=== PATIENT | male | born 1995 | race Caucasian/White ===

== ENCOUNTER 2021-02-04 14:57 | Emergency (ER) | payer BC, SELFPAY ==
[2021-02-04 15:05] VITALS: BP 113/72; PULSE 118; RESP 18; TEMP 36.3; O2SAT 100
--- NOTE | 2021-02-04 15:51 | ED.GENADULT ---
HPI - General Adult General Chief complaint: Skin/Abscess/Foreign Body Stated complaint: Rash x months Time Seen by Provider: 02/04/21 15:01 Source: patient and RN notes reviewed Mode of arrival: ambulatory Limitations: no limitations History of Present Illness HPI narrative: Patient presents with rash to the suprapubic region that has been present for 4 months notes itching and irritation has tried topical antibiotic with no relief denies similar occurrence in the past notes that he gets frequent itching denies other rash or similar occurrence last Related Data Allergies Allergy/AdvReac Type Severity Reaction Status Date / Time No Known Allergies Allergy Verified 02/04/21 15:31 Review of Systems Review of Systems: All systems reviewed & are unremarkable except as noted in HPI and below PMFSH Social History Social History (Updated 02/04/21 @ 15:54 by Cody Yen PA-C) Smoking status: Never smoker Gender identity (if verbalized by the patient): Male Exam Narrative: Exam Narrative: GENERAL: Well-appearing, well-nourished, and in no acute distress. HEAD: Normocephalic, atraumatic. EYES: PERRLA and EOMI. ENT: Nares clear, no rhinorrhea or epistaxis. Mucous membranes moist. CHEST: Clear to auscultation. No respiratory distress. No wheezes rales or rhonchi HEART: Regular rate and rhythm. No murmur heard. EXTREMITIES: Normal range of motion. No edema. SKIN: Warm, dry, patient with circular rash in the suprapubic region that is some redness and excoriation centrally consistent with fungal infection NEURO: No focal deficits. Alert and oriented x3. PSYCH: Normal mood and affect. Course Course Emergency Course: Patient in the room at this time aware of case findings treatment plan diagnosis will follow with primary care for further evaluation and referral to dermatology Vital Signs Vital signs: Vital Signs Temperature 97.4 F L 02/04/21 15:05 Pulse Rate 118 H 02/04/21 15:05 Respiratory Rate 18 02/04/21 15:05 Blood Pressure 113/72 02/04/21 15:05 Pulse Oximetry 100 02/04/21 15:05 Temperature 97.4 F L 02/04/21 15:05 Pulse Rate 118 H 02/04/21 15:05 Respiratory Rate 18 02/04/21 15:05 Blood Pressure 113/72 02/04/21 15:05 Pulse Oximetry 100 02/04/21 15:05 Medical Decision Making MDM Narrative Medical decision making narrative: Patient presented with rash that appears to be fungal in nature will be treated accordingly he will follow with primary care felt appropriate for outpatient reevaluation Vital Signs Vital Signs: Vital Signs Temperature 97.4 F L 02/04/21 15:05 Pulse Rate 118 H 02/04/21 15:05 Respiratory Rate 18 02/04/21 15:05 Blood Pressure 113/72 02/04/21 15:05 Pulse Oximetry 100 02/04/21 15:05 Temperature 97.4 F L 02/04/21 15:05 Pulse Rate 118 H 02/04/21 15:05 Respiratory Rate 18 02/04/21 15:05 Blood Pressure 113/72 02/04/21 15:05 Pulse Oximetry 100 02/04/21 15:05 Discharge Plan Discharge Clinical Impression: Rash and nonspecific skin eruption Patient Disposition: Home, Self-Care Condition: Stable Instructions: Antibiotic Form, Tinea Corporis (ED), Tinea Capitis (ED) Additional Instructions: Follow up with primary care in the next 2-3 days for re-evaluation and discussion for referral to dermatology return if symptoms worsen or concerns, any increase in redness swelling pain or fever over 100.5 Clean wound with mild soapy water. Keep clean and dry Follow patient education sheets Prescriptions: New clotrimazole-betamethasone 1-0.05 % cream 1 applic topical BID 14 Days RF: 0 fluconazole [Diflucan] 200 mg tablet 200 mg PO DAILY Qty: 2 RF: 0 Follow-up/Referrals: Nathaniel,Quiana Bee MD [Primary Care Provider] -
== END 2021-02-04 16:05 | disposition home or self-care (01) ==
PROVIDERS: Emergency Provider Emergency Medicine; PCP Family Medicine
DX: R21 Rash and other nonspecific skin eruption (principal)
CPT/HCPCS: 99283

== ENCOUNTER 2021-02-13 19:03 | Emergency (ER) | payer BC, SELFPAY ==
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
[2021-02-13 19:37] VITALS: BP 178/123; PULSE 112; RESP 12; TEMP 37.3; O2SAT 98
--- NOTE | 2021-02-13 20:10 | PC.NURSE ---
called and spoke to Abhijeet to add on Ethanol, CMP, TSH, CBCD
[2021-02-13 20:14] LABS: Basophils Absolute Auto 0.1 K/mm3 (0.0-0.1); Basophils Percent Auto 0.4 % (0.2-1.2); Eosinophils Absolute Auto 0.1 K/mm3 (0-0.3); Eosinophils Percent Auto 0.5 % (0-4.4); Hemoglobin 17.9 g/dL (14.0-18.0); Immature Granulocyte Absolute 0.05 K/mm3 (0.00-0.031); Immature Granulocyte Percent A 0.4 % (0-0.5); Lymphocytes Absolute Auto 2.68 K/mm3 (0.9-3.2); Lymphocytes Percent Auto 20.8 % (18.3-44.2); Mean Corpuscular HGB Conc 34.4 g/dl (32-36); Mean Corpuscular Hemoglobin 29.4 pg (26-34); Mean Corpuscular Volume 85.5 fl (80-100); Mean Platelet Volume 9.7 fl (7.4-10.4); Monocytes Absolute Auto 0.9 K/mm3 (0.1-0.6); Monocytes Percent Auto 7.1 % (2.6-8.5); Neutrophils Absolute Auto 9.1 K/mm3 (1.3-6.7); Neutrophils Percent Auto 70.8 % (45.5-73.1); Platelet Count Result 245 k/mm3 (150-375); Red Blood Count 6.08 M/mm3 (4.6-6.20); Red Cell Distribution Width 12.7 % (11.5-14.5); White Blood Count 12.9 K/mm3 (4.5-10.0)
[2021-02-13 20:20] LABS: Ethanol < 10 mg/dL (<10)
[2021-02-13 20:21] LABS: Alanine Aminotransferase 27 U/L (4-50); Albumin Level 4.9 g/dL (3.5-5.1); Alkaline Phosphatase 73 U/L (38-126); Anion Gap 8 mmol/L (8-16); Aspartate Amino Transferase 41 U/L (17-59); Bilirubin,Total 1.5 mg/dL (0.2-1.3); Blood Urea Nitrogen 11 mg/dL (9-20); Calcium 9.9 mg/dL (8.4-10.2); Carbon Dioxide 31 mmol/L (22-30); Chloride 100 mmol/L (98-107); Estimated Glomerular Filt Rate > 60; Glucose 114 mg/dL (75-110); Potassium 3.8 mmol/L (3.4-5.0); Sodium 139 mmol/L (137-145)
[2021-02-13 20:52] LABS: Thyroid Stimulating Hormone 0.826 uIU/mL (0.465-4.680)
[2021-02-13 20:57] LABS: Add Urine Microscopic? YES; Appearance Urine Clear (Clear); Bilirubin Urine Negative (Negative); Blood Urine Negative (Negative); Color Urine Yellow (Yellow); Glucose Urine UA Negative (Negative); Ketones Urine Negative (Negative); Leukocyte Esterase Ur Negative LEU/UL (Negative); Mucus Urine Rare /lpf; Nitrate Urine Negative (Negative); Protein Urine Negative (Negative); RBC Urine 0-2 /hpf (0-2); Specific Grav Ur 1.013 (1.001-1.035)
[2021-02-13] MEDS: LORazepam (*CRX) 1 MG TABLET PO (21:07)
[2021-02-13 21:09] LABS: Amphetamine Screen Urine Negative (Negative); Barbiturate Screen Urine Negative (Negative); Benzodiazepines Screen Urine Negative (Negative); Cannabinoid Screen Urine Positive (Negative); Cocaine Screen Urine Negative (Negative); Methadone Screen Urine Negative (Negative); Opiate Screen Urine Negative (Negative); Phencyclidine Screen Urine Negative (Negative)
--- NOTE | 2021-02-13 22:11 | PC.NURSE ---
pt siria plata anxious in room, pacing order received for Ativan po from dr Malik.
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
[2021-02-13 23:21] VITALS: BP 150/100; PULSE 100; RESP 16; TEMP 37.1; O2SAT 100
== END 2021-02-13 23:42 | disposition home or self-care (01) ==
PROVIDERS: Emergency Provider Emergency Medicine; PCP Family Medicine
DX: F41.9 Anxiety disorder, unspecified (principal)
CPT/HCPCS: 36415; 73130; 80053; 80307; 81001; 84443; 85025; 99284; A9270

== ENCOUNTER 2021-04-02 09:33 | Emergency (ER) | payer BC, SELFPAY ==
[2021-04-02 09:57] VITALS: BP 143/96; PULSE 120; RESP 20; TEMP 37.2; O2SAT 98
[2021-04-02 10:10] LABS: Basophils Percent Auto 0.4 % (0.2-1.2); Eosinophils Absolute Auto 0.2 K/mm3 (0-0.3); Eosinophils Percent Auto 1.5 % (0-4.4); Hematocrit 56.4 % (42.0-52.0); Hemoglobin 19.5 g/dL (14.0-18.0); Immature Granulocyte Absolute 0.07 K/mm3 (0.00-0.031); Immature Granulocyte Percent A 0.7 % (0-0.5); Lymphocytes Percent Auto 26.8 % (18.3-44.2); Mean Corpuscular HGB Conc 34.6 g/dl (32-36); Mean Corpuscular Hemoglobin 30.3 pg (26-34); Mean Corpuscular Volume 87.6 fl (80-100); Mean Platelet Volume 9.8 fl (7.4-10.4); Monocytes Absolute Auto 0.9 K/mm3 (0.1-0.6); Monocytes Percent Auto 8.7 % (2.6-8.5); Neutrophils Absolute Auto 6.5 K/mm3 (1.3-6.7); Neutrophils Percent Auto 61.9 % (45.5-73.1); Platelet Count Result 259 k/mm3 (150-375); Red Blood Count 6.44 M/mm3 (4.6-6.20); Red Cell Distribution Width 13.2 % (11.5-14.5); White Blood Count 10.5 K/mm3 (4.5-10.0)
[2021-04-02 10:13] LABS: Add Urine Microscopic? YES; Appearance Urine Clear (Clear); Bilirubin Urine Negative (Negative); Blood Urine Negative (Negative); Color Urine Yellow (Yellow); Glucose Urine UA Negative (Negative); Ketones Urine Negative (Negative); Leukocyte Esterase Ur Negative LEU/UL (Negative); Mucus Urine Rare /lpf; Nitrate Urine Negative (Negative); Protein Urine Negative (Negative); WBC Urine 0-3 /hpf
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
[2021-04-02 10:22] LABS: Alanine Aminotransferase 32 U/L (4-50); Albumin Level 5.1 g/dL (3.5-5.1); Alkaline Phosphatase 65 U/L (38-126); Anion Gap 9 mmol/L (8-16); Aspartate Amino Transferase 28 U/L (17-59); Bilirubin,Total 0.8 mg/dL (0.2-1.3); Blood Urea Nitrogen 16 mg/dL (9-20); Calcium 9.9 mg/dL (8.4-10.2); Carbon Dioxide 27 mmol/L (22-30); Chloride 105 mmol/L (98-107); Estimated CRCL calculation 87 ml/min; Estimated Glomerular Filt Rate > 60; Glucose 101 mg/dL (65-110); Potassium 3.8 mmol/L (3.4-5.0); Sodium 141 mmol/L (137-145)
[2021-04-02 10:24] LABS: Ethanol < 10 mg/dL (<10)
[2021-04-02 10:25] LABS: Amphetamine Screen Urine Negative (Negative); Barbiturate Screen Urine Negative (Negative); Benzodiazepines Screen Urine Negative (Negative); Cannabinoid Screen Urine Positive (Negative); Cocaine Screen Urine Negative (Negative); Methadone Screen Urine Negative (Negative); Opiate Screen Urine Negative (Negative); Phencyclidine Screen Urine Negative (Negative)
--- NOTE | 2021-04-02 10:30 | PC.NURSE ---
Pt is pacing back in forth in room.
[2021-04-02 10:32] LABS: EDCOVIDSCREEN Negative (Negative)
--- NOTE | 2021-04-02 10:51 | ED.PSYCH ---
HPI - Psych General Chief Complaint: Psychiatric Symptoms <Chanelle Gandara MD - Last Filed: 04/02/21 19:24> Stated Complaint: SI/HI <Chanelle Gandara MD - Last Filed: 04/02/21 19:24> Time Seen by Provider: 04/02/21 09:55 <Chanelle Gandara MD - Last Filed: 04/02/21 19:24> Source: patient and RN notes reviewed <Chanelle Gandara MD - Last Filed: 04/02/21 19:24> Mode of arrival: EMS <Chanelle Gandara MD - Last Filed: 04/02/21 19:24> Limitations: no limitations <Chanelle Gandara MD - Last Filed: 04/02/21 19:24> History of Present Illness HPI Narrative: This is a 25 year old male who presents for evaluation of suicidal and homicidal thoughts. PAtient states he was recently released from [facility] and he is getting monthly injections of Haldol. He states he has been unable to get his injection for his haldol this month because either he was late or it was the weekend. He states he is having thought of kidnapping people. He is telling the sitter his plan to kidnap her and bag her head against the door. He denies any other complaints. <Chanelle Gandara MD - Last Filed: 04/02/21 19:24> Related Data Allergies/Adverse Reactions: Allergies Allergy/AdvReac Type Severity Reaction Status Date / Time No Known Allergies Allergy Verified 02/13/21 20:18 <Chanelle Gandara MD - Last Filed: 04/02/21 19:24> Review of Systems Review of Systems: All systems reviewed & are unremarkable except as noted in HPI and below <Chanelle Gandara MD - Last Filed: 04/02/21 19:24> PMFSH Past Medical History Medical History: Medical History (Updated 04/02/21 @ 19:23 by Chanelle Gandara MD) Anxiety <Chanelle Gandara MD - Last Filed: 04/02/21 19:24> Social History Social History: Social History Smoking status: Never smoker Substance use type: crack/cocaine Gender identity (if verbalized by the patient): Male <Chanelle Gandara MD - Last Filed: 04/02/21 19:24> Exam Const: General: no acute distress and alert <Chanelle Gandara MD - Last Filed: 04/02/21 19:24> Orientation/consciousness: patient oriented x3 <Chanelle Gandara MD - Last Filed: 04/02/21 19:24> Eyes: EOM: EOMs intact bilaterally <Chanelle Gandara MD - Last Filed: 04/02/21 19:24> Chest: Chest palpation & inspection: normal inspection of the chest <Chanelle Gandara MD - Last Filed: 04/02/21 19:24> Resp: Effort & Inspection: normal respiratory effort and no retractions <Chanelle Gandara MD - Last Filed: 04/02/21 19:24> Auscultation: clear to auscultation bilaterally <Chanelle Gandara MD - Last Filed: 04/02/21 19:24> Cardio: Rate: regular rate <Chanelle Gandara MD - Last Filed: 04/02/21 19:24> Rhythm: regular rhythm <Chanelle Gandara MD - Last Filed: 04/02/21 19:24> Heart sounds: no murmurs <Chanelle Gandara MD - Last Filed: 04/02/21 19:24> GI: GI Palp: Yes Soft to palpation, No Tenderness to palpation present (GI) and No Guarding due to palpation present (GI) <Chanelle Gandara MD - Last Filed: 04/02/21 19:24> Auscultation: normal bowel sounds <Chanelle Gandara MD - Last Filed: 04/02/21 19:24> Skin: General skin exam: normal color <Chanelle Gandara MD - Last Filed: 04/02/21 19:24> Rashes: no rashes <Chanelle Gandara MD - Last Filed: 04/02/21 19:24> Neuro: General: patient oriented x3, moves all extremities and CN's II-XI intact bilaterally <Chanelle Gandara MD - Last Filed: 04/02/21 19:24> Other: patient is pacing around the room <Chanelle Gandara MD - Last Filed: 04/02/21 19:24> Psych: Appearance: grossly normal and well kempt <Chanelle Gandara MD - Last Filed: 04/02/21 19:24> Attitude: cooperative <Chanelle Gandara MD - Last Filed: 04/02/21 19:24> Thought content: Yes Homicidality present <Chanelle Gandara MD - Last Filed: 04/02/21 19:24> Course Course Emergency Course: Care turned to myself
--- NOTE | 2021-04-02 10:53 | PC.NURSE ---
Pt. was pacing and talking to sitter. He stated how easy it would be to take me hostage and how he would do it. He also stated he would slam the door in anyone's face if they asked him any more questions. He claims that he wanted to kick the Dr. for not giving him his medications. He physically acted out how he would take anyone hostage and hold a pen to their neck, hide behind them so that the maintenance mechanic helper could not get to him. He states he is paranoid and nervous of anyone that walks by. States that he does not want to cause a scene, but is continuously narrating how he would accomplish these thoughts. Nurse made aware and instructed me to make note.
[2021-04-02] MEDS: HALOPERIDOL LACTATE 5 MG/ML VIAL IM (11:15)
[2021-04-02] MEDS: LORazepam (*CRX) 1 MG TABLET PO (11:16)
--- NOTE | 2021-04-02 12:03 | ECG_ITS ---
Measurements Intervals [place] Rate: 88 P: 60 CT: 147 QRS: 48 QRSD: 90 T: 14 QT: 327 QTc: 396 Interpretive Statements SINUS RHYTHM NORMAL ECG Electronically Signed On 04-03-2021 8:10:13 CDT by Jony Latif D.O.
--- NOTE | 2021-04-02 12:39 | PC.NURSE ---
Patient was noted to be sleeping on the stretcher with the sitter at bedside. Patient woke easily to verbal stimuli. He was calm and appropriate with staff. When asked how he was feeling, patient reported I'm fine . Food tray ordered for patient at this time as well.
[2021-04-02 19:16] VITALS: BP 125/84; PULSE 68; RESP 16; O2SAT 100
[2021-04-02] MEDS: NICOTINE (*PBKC) 21 MG PATCH 1 PATCH TRANSDERM (21:58)
[2021-04-02 23:13] VITALS: BP 132/81; PULSE 78; RESP 18; TEMP 36.7; O2SAT 100
--- NOTE | 2021-04-02 23:17 | PC.NURSE ---
Report to WHITNEY Gauthier at [place]. [phone].
--- NOTE | 2021-04-02 23:29 | PC.NURSE ---
called [facility] to request transport. ETA midnight;
--- NOTE | 2021-04-02 23:49 | PC.NURSE ---
[facility] here
== END 2021-04-02 23:55 ==
PROVIDERS: General Practice; Emergency Provider Emergency Medicine; PCP Family Medicine
DX: R45.850 Homicidal ideations (principal); F41.9 Anxiety disorder, unspecified; Z20.822 Contact with and (suspected) exposure to COVID-19
CPT/HCPCS: 36415; 80053; 80307; 81001; 84443; 85025; 87426; 93005; 96372; 99285; A9270; C9803; J1630

== ENCOUNTER 2022-02-21 23:12 | Observation (INO) | payer BC, SELFPAY ==
--- NOTE | ~2022-02-21 | XR_ITS ---
EXAMINATION: XR chest 1V portable DATE: 02/21/2022 23:54 INDICATION: Overdose TECHNIQUE: frontal view of the chest was obtained. COMPARISON: None FINDINGS: The lungs are clear with no focal airspace opacities, pulmonary edema, pleural effusion or pneumothor ax. The cardiomediastinal silhouette is normal. Visualized bones and soft tissues are unremarkable. IMPRESSION: 1. No acute cardiopulmonary disease. Reviewed, dictated and finalized at location A.
[2022-02-21 23:10] VITALS: BP 205/99; PULSE 162; RESP 37; TEMP 36.8; O2SAT 96
[2022-02-21 23:16] VITALS: PULSE 163; RESP 46
--- NOTE | 2022-02-21 23:33 | ECG_ITS ---
Measurements Intervals [employer] Rate: 160 P: [place]: 0 QRS: 52 QRSD: 84 T: 47 QT: 300 QTc: 489 Interpretive Statements SUPRAVENTRICULAR TACHYCARDIA NONSPECIFIC ST & T-WAVE ABNORMALITY- INF/LAT LEADS ABNORMAL ECG Electronically Signed On 02-22-2022 6:33:01 CDT by Jony Latif D.O.
[2022-02-21 23:46] VITALS: BP 178/122; PULSE 153; RESP 38
--- NOTE | 2022-02-21 23:46 | PC.NURSE ---
RN called poison control, spoke with Maricel OLSON. suggested Sodium Bicarb with wide QRS, will fax over guidelines.
[2022-02-21] MEDS: SODIUM CHLORIDE 0.9% IV 1,000 ML 999 ML IV CONT (23:53)
[2022-02-21] MEDS: LORazepam INJ (*CRX) 2 MG/ML VIAL 1 MG IV PUSH (23:53)
[2022-02-22] VITALS (26 sets, daily range): BP systolic 144–193; BP diastolic 85–101; PULSE 84–144; RESP 13–45; TEMP 36.8–37.1; O2SAT 94–99; BMI 31.4
[2022-02-22 00:28] LABS: Basophils Absolute Auto 0.1 K/mm3 (0.0-0.1); Basophils Percent Auto 0.5 % (0.2-1.2); Eosinophils Absolute Auto 0.1 K/mm3 (0-0.3); Eosinophils Percent Auto 0.7 % (0-4.4); Hematocrit 52.3 % (42.0-52.0); Hemoglobin 18.6 g/dL (14.0-18.0); Immature Granulocyte Absolute 0.38 K/mm3 (0.00-0.031); Immature Granulocyte Percent A 2.1 % (0-0.5); Lymphocytes Absolute Auto 4.72 K/mm3 (0.9-3.2); Lymphocytes Percent Auto 25.9 % (18.3-44.2); Mean Corpuscular HGB Conc 35.6 g/dl (32-36); Mean Corpuscular Hemoglobin 30.3 pg (26-34); Mean Corpuscular Volume 85.3 fl (80-100); Mean Platelet Volume 10.3 fl (7.4-10.4); Monocytes Absolute Auto 1.5 K/mm3 (0.1-0.6); Neutrophils Absolute Auto 11.4 K/mm3 (1.3-6.7); Neutrophils Percent Auto 62.8 % (45.5-73.1); Platelet Count Result 308 k/mm3 (150-375); Red Blood Count 6.13 M/mm3 (4.6-6.20); Red Cell Distribution Width 12.8 % (11.5-14.5); White Blood Count 18.2 K/mm3 (4.5-10.0)
[2022-02-22 00:34] LABS: Appearance Urine Clear (Clear); Bilirubin Urine Negative (Negative); Color Urine Yellow (Yellow); Glucose Urine UA Negative (Negative); Ketones Urine Trace mg/dL (Negative); Leukocyte Esterase Ur Negative LEU/UL (Negative); Nitrate Urine Negative (Negative); Protein Urine 1+ mg/dL (Negative); Specific Grav Ur >= 1.030 (1.001-1.035); Urobilinogen Urine 0.2 mg/dL (<2.0); pH Urine 5.5 (5.0-9.0)
[2022-02-22 00:35] LABS: Add Urine Microscopic? YES; Bacteria Urine Trace /hpf; Blood Urine Trace (Negative); Calcium Oxalate Crystals Urine Present /hpf; Mucus Urine Rare /lpf; WBC Urine 0-3 /hpf
--- NOTE | 2022-02-22 00:37 | PC.NURSE ---
Pt resting on stretcher quietly. Sitter reports prior to catherization that pt was attempting to eat and lick the pulse oximeter and that this behavior has stopped and pt is much calmer.
[2022-02-22 00:40] LABS: Acetaminophen < 10 ug/mL (10-30); Ethanol 51 mg/dL (<10); Salicylate < 1.0 mg/dL (2-20)
[2022-02-22 00:47] LABS: Amphetamine Screen Urine Negative (Negative); Barbiturate Screen Urine Negative (Negative); Benzodiazepines Screen Urine Negative (Negative); Cannabinoid Screen Urine Positive (Negative); Cocaine Screen Urine Negative (Negative); Methadone Screen Urine Negative (Negative); Opiate Screen Urine Negative (Negative); Phencyclidine Screen Urine Negative (Negative)
[2022-02-22 00:52] LABS: Alanine Aminotransferase 86 U/L (6-50); Albumin Level 4.5 g/dL (3.5-5.1); Alkaline Phosphatase 66 U/L (38-126); Anion Gap 15 mmol/L (8-16); Aspartate Amino Transferase 128 U/L (17-59); Bilirubin,Total 0.4 mg/dL (0.2-1.3); Blood Urea Nitrogen 11 mg/dL (9-20); Calcium 8.6 mg/dL (8.4-10.2); Carbon Dioxide 20 mmol/L (22-30); Chloride 108 mmol/L (98-107); Estimated CRCL calculation 89 ml/min; Estimated Glomerular Filt Rate > 60; Glucose 117 mg/dL (65-110); Potassium 2.8 mmol/L (3.4-5.0); Sodium 143 mmol/L (137-145)
[2022-02-22 01:04] LABS: SARS-CoV-2 RNA PCR Negative
[2022-02-22 01:05] LABS: Creatine Kinase 6917 U/L (55-170)
[2022-02-22] MEDS: SODIUM CHLORIDE 0.9% IV 1,000 ML 999 ML IV CONT (01:15)
[2022-02-22] MEDS: LORazepam INJ (*CRX) 2 MG/ML VIAL 1 MG IV PUSH (01:15)
[2022-02-22] MEDS: POTASSIUM CHLORIDE INJ 40 MEQ in SODIUM CHLORIDE 0.9% IV 500 ML 130 MEQ IVPB (01:16)
--- NOTE | 2022-02-22 01:21 | PC.NURSE ---
Pt awake, eyes remain wide open and pt appears to be hallucinating. Does not answer when he's asked about hallucinating. Pt noted to be talking when alone in room. Speech nonsensical and slurred. Pt asks for a beer. Explained that unable to give any po at this time.
--- NOTE | 2022-02-22 02:18 | ED.GENADULT ---
HPI - General Adult General Chief complaint: Altered Mental Status Stated complaint: AMS, +ETOH Time Seen by Provider: 02/21/22 23:24 History of Present Illness HPI narrative: Patient a 26-year-old gentleman who presents to the emergency department with chief complaint of suicidal ideation and overdose. Patient reports this evening he took 2 handfuls full of Benadryl in attempt to harm himself the patient also drink some alcohol and told one of his family members that he was wanting to harm himself and that he overdosed. The patient was brought in by EMS tachycardic Related Data Home Medications Medication Instructions Recorded Confirmed aripiprazole 5 mg tablet mg 02/22/22 haloperidol 5 mg tablet mg 02/22/22 hydroxyzine HCl 25 mg tablet mg 02/22/22 Allergies Allergy/AdvReac Type Severity Reaction Status Date / Time No Known Allergies Allergy Verified 02/21/22 23:47 Review of Systems Review of Systems: A 10 system review of systems was completed on the patient and is negative except for what is stated in the HPI. Nursing and ancillary documentation was reviewed. PMFSH Past Medical History Medical History Anxiety Bipolar disorder Surgical History Surgical History No history of previous surgery Family History Family History Father Healthy adult Mother Healthy adult Social History Social History Social History: He reports that he smoked pack per day since he was 12 years old. Smoking packs per day: 1 Smoking cigarettes per day: 20.0 Years smoked: 15 Smoking pack-years: 15.00 Smoking status: Current every day smoker Tobacco type: cigarettes Alcohol intake: current Drinks per week: 10 Substance use: current Substance use type: marijuana Additional living arrangements comments: He lives with his parents. Additional occupation/education comments: He works at [employer]. Gender identity (if verbalized by the patient): Male Spiritual care concerns: No Exam Narrative: GENERAL: Well-appearing, well-nourished, and in no acute distress. HEAD: Normocephalic, atraumatic. EYES: PERRLA and EOMI. pupils are dilated ENT: Nares clear, no rhinorrhea or epistaxis. Dry membranes moist. NECK: Supple. CHEST: Clear to auscultation. No respiratory distress. HEART: Tachycardic rate and rhythm. No murmur heard. Normal peripheral pulses. ABDOMEN: Soft, nontender, nondistended, normal active bowel sounds. EXTREMITIES: Normal range of motion. No edema. SKIN: Warm, dry, no rash. NEURO: No focal deficits. Alert and oriented x3. PSYCH: Depressed, suicidal Course Vital Signs Vital signs: Vital Signs Temperature 36.8 C 02/21/22 23:10 Pulse Rate 162 H 02/21/22 23:10 Respiratory Rate 37 H 02/21/22 23:10 Blood Pressure 205/99 H 02/21/22 23:10 Pulse Oximetry 96 02/21/22 23:10 Oxygen Delivery Room Air 02/21/22 23:10 Temperature 37.1 C 02/22/22 05:12 Pulse Rate 135 H 02/22/22 05:12 Respiratory Rate 36 H 02/22/22 05:12 Blood Pressure 190/94 H 02/22/22 05:12 Pulse Oximetry 99 02/22/22 05:12 Oxygen Delivery Room Air 02/21/22 23:10 Medical Decision Making Vital Signs Vital Signs: Vital Signs Temperature 36.8 C 02/21/22 23:10 Pulse Rate 162 H 02/21/22 23:10 Respiratory Rate 37 H 02/21/22 23:10 Blood Pressure 205/99 H 02/21/22 23:10 Pulse Oximetry 96 02/21/22 23:10 Oxygen Delivery Room Air 02/21/22 23:10 Temperature 37.1 C 02/22/22 05:12 Pulse Rate 135 H 02/22/22 05:12 Respiratory Rate 36 H 02/22/22 05:12 Blood Pressure 190/94 H 02/22/22 05:12 Pulse Oximetry 99 02/22/22 05:12 Oxygen Delivery Room Air 02/21/22 23:10 Lab Data Result diagrams: 02/22
[2022-02-22] MEDS: SODIUM CHLORIDE 0.9% IV 1,000 ML 200 ML IV CONT (02:24)
--- NOTE | 2022-02-22 02:30 | PC.NURSE ---
Awaiting return call from Dr. King.
--- NOTE | 2022-02-22 02:40 | PC.NURSE ---
Pt stands to void with assist of two. Voids approx 100cc clear yellow urine and assisted back to bed. Pt knows name and that he's at a hospital. States yes when asked if he's hallucinating, denies auditory hallucinations.
--- NOTE | 2022-02-22 02:45 | PC.NURSE ---
Dr. Gan speaking with Dr. King and has spoken with relief salesperson regarding admission. [place] Poison Control calls and update on pt given. Made aware of plan to admit to ICU.
--- NOTE | 2022-02-22 03:10 | PC.NURSE ---
2nd peripheral IV initiated for bicarb gtt. Attempt to call pharmacy regarding gtt, no answer. Report to WHITNEY Martinez to continue care.
[2022-02-22] MEDS: SODIUM BICARBONATE 8.4% 150 MEQ in DEXTROSE 5% 1,000 ML 950 ML 100 MEQ IV CONT ×2 (03:31→13:47)
--- NOTE | 2022-02-22 05:17 | ADMGEN ---
This patient, Seamus Naik, was admitted to Intensive Care Unit-5. Patient/family oriented to hospital policies and general routines including ID bracelet, bed and alarms, visiting hours, pain management, procedures, bathroom and other care routines, personal items, smoking policy, room service/diet, and visiting hours. Information on how to activate the Rapid Response Team has been discussed. Patient/Family are encouraged to report perceived risks to care and to ask questions if they do not understand what they are told or what they should do.
--- NOTE | 2022-02-22 05:41 | PM.IMHP ---
H&P: HPI History of Present Illness Date/Time: 02/22/22 05:41 Chief Complaint: Overdose Narrative: 26-year-old male with a past medical history of bipolar disorder, anxiety and hallucinations who presented to the ER via EMS after suicidal attempt. The patient's brother provided history to the ER staff. Brother reported that he woke up in found his brother with bug eyes and not acting right. Patient was witnessed to take at least 2 handfuls of Benadryl. Brother thought that the patient had taken is Benadryl sometime after 9:00 p.m.. The patient tells me that he took the Benadryl around 3:00 p.m. but is not a reliable historian. At the time of my evaluation the patient was oriented to person place and time but thought that the president was Obama. The patient states that he was not trying to hurt himself that he was simply trying to get high. The patient is difficult to get history from in has tangential thought process. He told me that he does have hallucinations but he could not tell me what the hallucinations were telling him. He denies any homicidal ideation at this time. He has been evaluated in the past in March 2021 for similar symptoms and presentation. In the ER the patient's speech was at times slurred. At the time my evaluation the patient's speech is clear but thought process is not clear. The patient's brother reported that the patient had a seizure 1 week ago but does not know any details about the seizure and is unclear if the patient received any medical care at that time. Patient denies any symptoms of urinary retention and has urinated since he has arrived to the ICU. He denies any abdominal pain constipation or diarrhea. He is noted to be tachycardic denies any chest pain. He denies shortness of breath but is tachypneic. He does have a erythematous raised patch of skin to his right lower abdomen. He reports that this area will frequently itch. This is been present somewhere from a few months to a few years. He has a smaller patch of erythematous skin to the lateral left thigh that it appears he is actually scratched to create an ulcer. There is no drainage or warmth. He has been afebrile since presentation. The patient tells me that he only drinks alcohol on occasion but cannot give me an amount. His alcohol level when he arrived to the ER was 51. He does admit to smoking marijuana frequently. Review of Systems Review of Systems: Twelve point review of systems was attempted but limited due to the patient's anticholinergic crisis/drug intoxication. [facility] Past Medical History Medical History (Updated 02/22/22 @ 06:25 by Loyda King DO) Anxiety Auditory hallucinations Bipolar disorder Surgical History Surgical History (Updated 02/22/22 @ 06:04 by Loyda King DO) No history of previous surgery Family History Family History (Updated 02/22/22 @ 06:15 by Loyda King DO) Father Healthy adult Mother Healthy adult Social History Social History (Updated 02/22/22 @ 06:17 by Loyda King DO) Social History: He reports that he smoked pack per day since he was 12 years old. Smoking packs per day: 1 Smoking cigarettes per day: 20.0 Years smoked: 15 Smoking pack-years: 15.00 Smoking status: Current every day smoker Tobacco type: cigarettes Alcohol intake: current Drinks per week: 10 Substance use: current Substance use type: marijuana Additional living arrangements comments: He lives with his parents. Additional occupation/education comments: He works at [employer]. Gender identity (if verbalized by the patient): Male Spiritual care concerns: No Meds Home Medications and Allergies Home Medications Medication Instructions Recorded Confirmed Type aripiprazole 5 mg tablet mg 02/22/22 History haloperidol 5 mg tablet mg 02/22/22 History hydroxyzine HCl 25 mg tablet mg 02/22/22 History Allergies Allergy/AdvReac Type Severity Re
[2022-02-22] MEDS: diazePAM INJ (*CRX) 10 MG/2 ML SYRINGE 2 MG IV PUSH ×2 (05:55→19:36)
[2022-02-22] MEDS: SODIUM CHLORIDE 0.9% IV 1,000 ML 150 ML IV CONT ×4 (05:56→22:01)
--- NOTE | 2022-02-22 06:03 | ECG_ITS ---
Measurements Intervals [place] Rate: 117 P: 54 AR: 180 QRS: 35 QRSD: 86 T: 19 QT: 342 QTc: 478 Interpretive Statements SINUS TACHYCARDIA NONSPECIFIC T-WAVE ABNORMALITY- INFERIOR LEADS ABNORMAL ECG Electronically Signed On 02-22-2022 22:21:48 CDT by Jony Latif D.O.
[2022-02-22 06:29] LABS: Hematocrit 49.6 % (42.0-52.0); Hemoglobin 17.5 g/dL (14.0-18.0); Mean Corpuscular HGB Conc 35.3 g/dl (32-36); Mean Corpuscular Hemoglobin 29.6 pg (26-34); Mean Corpuscular Volume 83.9 fl (80-100); Mean Platelet Volume 9.5 fl (7.4-10.4); Platelet Count Result 261 k/mm3 (150-375); Red Blood Count 5.91 M/mm3 (4.6-6.20); Red Cell Distribution Width 12.7 % (11.5-14.5); White Blood Count 19.9 K/mm3 (4.5-10.0)
[2022-02-22 06:58] LABS: Alanine Aminotransferase 83 U/L (6-50); Albumin Level 4.1 g/dL (3.5-5.1); Alkaline Phosphatase 57 U/L (38-126); Anion Gap 10 mmol/L (8-16); Aspartate Amino Transferase 107 U/L (17-59); Bilirubin,Total 0.5 mg/dL (0.2-1.3); Blood Urea Nitrogen 8 mg/dL (9-20); Calcium 8.8 mg/dL (8.4-10.2); Carbon Dioxide 22 mmol/L (22-30); Chloride 109 mmol/L (98-107); Estimated CRCL calculation 108 ml/min; Estimated Glomerular Filt Rate > 60; Glucose 128 mg/dL (65-110); Magnesium 1.5 mg/dL (1.6-2.3); Phosphorus 3.3 mg/dL (2.5-4.5); Sodium 141 mmol/L (137-145)
[2022-02-22 07:18] LABS: Creatine Kinase 5576 U/L (55-170)
[2022-02-22] MEDS: LACTATED RINGERS 1,000 ML 999 ML IV CONT (07:33)
[2022-02-22] MEDS: hydrALAZINE HCL 20 MG/ML VIAL 10 MG IV PUSH ×2 (07:34→13:03)
--- NOTE | 2022-02-22 08:13 | WPDCNINT ---
Assessment and Plan Assessment and plan (1) Anticholinergic drug overdose: Qualifiers: Encounter type: initial encounter Injury intent: intentional self-harm Qualified Code(s): T44.3X2A - Poisoning by other parasympatholytics [anticholinergics and antimuscarinics] and spasmolytics, intentional self-harm, initial encounter Code(s): T44.3X1A - Poisoning by other parasympatholytics [anticholinergics and antimuscarinics] and spasmolytics, accidental (unintentional), initial encounter Status: Acute Assessment and Plan: Patient presented with suicidal behavior after taking 2 handfuls of Benadryl pills. -patient currently tachycardic, confused with dilated pupils, difficulty in urination, he is urinating every 10-15 minutes. -refused Berger catheter -patient is confused -poison Control has been notified, was started on bicarb infusion for slightly increased QT interval -patient has received 2 L of IV fluids, will give additional IV fluid bolus this morning as he remains tachycardic -patient is hypertensive, will add p.r.n. hydralazine, patient also has diazepam p.r.n. for his anxiety (2) Suicidal behavior: Code(s): R45.89 - Other symptoms and signs involving emotional state Status: Acute Assessment and Plan: Patient in the ER did state that he was suicidal, also his brother informed the hospitalist that he had suicidal thoughts and behaviors -continue suicidal precautions -bedside sitter -will have care coordination and crisis management evaluate the patient once he is medically stable (3) Acute hypokalemia: Code(s): E87.6 - Hypokalemia Status: Acute Assessment and Plan: Hypokalemia has resolved after replacement (4) Rhabdomyolysis: Code(s): M62.82 - Rhabdomyolysis Status: Acute Assessment and Plan: Rhabdomyolysis, could be related to tremors secondary to Benadryl overdose -patient will be given additional IV fluid bolus this morning -continue sodium bicarb infusion and IV fluids Plan IV fluid bolus Will start oral diet Additional Plan Code status: Full code Critical care time spent: 43 minutes This dictation may have been done utilizing a voice recognition system. Attempts have been made to correct errors. However, there may be uncorrected grammatical, spelling, and recognition errors present. Due to a high probability of clinically significant, life threatening deterioration, the patient required my highest level of preparedness to intervene emergently and I personally spent this critical care time directly and personally managing the patient. This critical care time included obtaining a history; examining the patient; pulse oximetry; ordering and review of studies; arranging urgent treatment with development of a management plan; evaluation of patient's response to treatment; frequent reassessment; and discussions with other providers. It was exclusive of separately billable procedures and treating other patients and teaching time. Please see Assessment and Plan section and the rest of the note for further information on patient assessment and treatment [facility] Consult Note Consult date: 02/22/22 Reason for consult: Diphenhydramine overdose, suicidal behavior HPI: Seamus Naik is a 26 year old male with past medical history of anxiety, bipolar disorder, auditory hallucinations presented to the ER on 02/22/2022 with with missed overdose of 2 handfuls of Benadryl pills, according the records patient also had suicidal thoughts/behavior. Patient was also hallucinating and had tendon shows thought process. Patient was alert and oriented in the ER but started to get more confused when he was transferred to the ICU. Patient received 2 L of IV fluids, CK levels were in the 6000. Patient had mild increase in his QT poison controlled recommended starting bicarb infusion. Patient was transferred to the ICU for further management. Patient seen and examine
--- NOTE | 2022-02-22 09:38 | PC.NURSE ---
Poison control updated on patient condition.
[2022-02-22] MEDS: TRIAMCINOLONE ACET 0.5% OINT 15 GM TUBE 1 APPLIC TOPICAL ×3 (10:09→16:32)
[2022-02-22] MEDS: ENOXAPARIN 40 MG/0.4 ML SYRINGE SUB-Q (10:09)
--- NOTE | 2022-02-22 12:03 | ECG_ITS ---
Measurements Intervals [place] Rate: 104 P: 58 OR: 159 QRS: 36 QRSD: 86 T: 14 QT: 345 QTc: 454 Interpretive Statements SINUS TACHYCARDIA BORDERLINE ST-T WAVE ABNORMALITY- ANTEROLAT/INF LEADS BORDERLINE ECG Electronically Signed On 02-22-2022 22:27:36 CDT by Jony Latif D.O.
--- NOTE | 2022-02-22 12:58 | PM.IMPN ---
Progress Note: A&P Assessment and Plan (1) Anticholinergic drug overdose: Qualifiers: Encounter type: initial encounter Injury intent: intentional self-harm Qualified Code(s): T44.3X2A - Poisoning by other parasympatholytics [anticholinergics and antimuscarinics] and spasmolytics, intentional self-harm, initial encounter Code(s): T44.3X1A - Poisoning by other parasympatholytics [anticholinergics and antimuscarinics] and spasmolytics, accidental (unintentional), initial encounter Status: Acute Assessment and Plan: Patient presented with suicidal behavior after taking 2 handfuls of Benadryl pills and is admitted to the ICU for monitoring. Tachycardic. No longer suicidal. UDS positive for cannabinoids. Appreciate recommendations from ICU. (2) Suicidal behavior: Code(s): R45.89 - Other symptoms and signs involving emotional state Status: Acute Assessment and Plan: Patient no longer suicidal and may benefit from Psychiatry consultation. (3) Acute hypokalemia: Code(s): E87.6 - Hypokalemia Status: Acute Assessment and Plan: Resolved. (4) Rhabdomyolysis: Code(s): M62.82 - Rhabdomyolysis Status: Acute Assessment and Plan: Rhabdomyolysis, could be related to tremors secondary to Benadryl overdose -patient will be given additional IV fluid bolus this morning -continue sodium bicarb infusion and IV fluids (5) Suicide attempt by drug overdose: Code(s): T50.902A - Poisoning by unspecified drugs, medicaments and biological substances, intentional self-harm, initial encounter Status: Acute Assessment and Plan: -See plan as noted above. (6) Hypertension: Qualifiers: Hypertension type: unspecified secondary hypertension Qualified Code(s): I15.9 - Secondary hypertension, unspecified Code(s): I10 - Essential (primary) hypertension Status: Acute Assessment and Plan: Hypertensive. May be relate current poisoning. Would monitor for now. (7) Auditory hallucinations: Code(s): R44.0 - Auditory hallucinations Status: Acute Assessment and Plan: Patient denied hallucinations during my exam. Subjective Date/time seen: 02/22/22 13:58 Patient reports his primary care physician manages his psychotropic medications and that he does not see a psychiatrist. Denies SI or HI at this time. Denies drug use other than marijuana. Denies having had any recent traumatic event such as the of a friend or close family member, loss of job. Says he just felt depressed and bored with life so he tried to take his life. Says the PCP was treating him for anxiety and depression. Denies visual or auditory hallucinations. Review of Systems Psychiatric: Psychiatric: Reports anxiety, Reports depression, Denies homicidal ideation and Denies suicidal ideation Exam Narrative: GENERAL: NAD, cooperative HEENT: Normocephalic, atraumatic, anicteric, large dilated pupils NECK: Supple CV: Tachycardia, regular rhythm. No murmurs. RESP: CTAB, Normal work of breathing. Abdomen: Soft, non-tender, non-distended, +BS EXTREMITIES: Warm and well perfused, no clubbing, cyanosis, or edema. +2 Distal pulses bilaterally. SKIN: warm, dry and intact. NEURO:CN 2-12 grossly intact. Objective Data Vital Signs Vital Signs: Vital Signs - 24 hr 02/22/22 00:02 02/22/22 00:15 02/22/22 00:16 Temperature Pulse Rate 142 H 134 H 140 H Respiratory Rate 37 H 42 H 32 H Blood Pressure 163/95 H 163/97 H Pulse Oximetry 94 Oxygen Delivery 02/22/22 00:31 02/22/22 00:32 02/22/22 01:07 Temperature Pulse Rate 137 H 139 H 138 H Respiratory Rate 42 H 45 H 28 H Blood Pressure 161/85 H Pulse Oximetry 95 95 Oxygen Delivery 02/22/22 01:52 02/22/22 02:15 02/22/22 02:16 Temperature Pulse Rate 133 H 127 H 135 H Respiratory Rate 21 H 27 H 24 H Blo
[2022-02-22] MEDS: NICOTINE (*PBKC) 21 MG PATCH 1 PATCH TRANSDERM (13:02)
--- NOTE | 2022-02-22 16:48 | ECG_ITS ---
Measurements Intervals [place] Rate: 97 P: 59 MT: 160 QRS: 44 QRSD: 89 T: 14 QT: 349 QTc: 443 Interpretive Statements SINUS RHYTHM BORDERLINE ST-T WAVE ABNORMALITY- INFERIOR LEADS BORDERLINE ECG Electronically Signed On 02-23-2022 16:11:36 CDT by Jony Latif D.O.
--- NOTE | 2022-02-22 18:03 | ECG_ITS ---
Measurements Intervals [place] Rate: 84 P: 63 [place]: 163 QRS: 49 QRSD: 94 T: 11 QT: 379 QTc: 450 Interpretive Statements SINUS RHYTHM BASELINE ARTIFACT- I, II, III, AVR, AVF, V1 NORMAL ECG Electronically Signed On 02-23-2022 9:45:55 CDT by Jony Latif D.O.
--- NOTE | 2022-02-22 21:29 | PC.NURSE ---
Call received from poison control. Updated on patient vitals, ekg, and mental status.
[2022-02-23] VITALS (10 sets, daily range): BP systolic 133–156; BP diastolic 83–97; PULSE 68–93; RESP 18–26; TEMP 36.6–37.2; O2SAT 97–100
--- NOTE | 2022-02-23 | ECG_ITS ---
Measurements Intervals [place] Rate: 80 P: 55 LA: 162 QRS: 46 QRSD: 88 T: 19 QT: 371 QTc: 428 Interpretive Statements SINUS RHYTHM BASELINE ARTIFACT- II, III, AVR, AVF, V1 NORMAL ECG Electronically Signed On 02-23-2022 9:46:41 CDT by Jony aLtif D.O.
[2022-02-23] MEDS: SODIUM BICARBONATE 8.4% 150 MEQ in DEXTROSE 5% 1,000 ML 950 ML 100 MEQ IV CONT (00:47)
[2022-02-23 04:42] LABS: Hematocrit 45.1 % (42.0-52.0); Mean Corpuscular HGB Conc 33.3 g/dl (32-36); Mean Corpuscular Volume 87.2 fl (80-100); Mean Platelet Volume 9.5 fl (7.4-10.4); Platelet Count Result 172 k/mm3 (150-375); Red Blood Count 5.17 M/mm3 (4.6-6.20); Red Cell Distribution Width 13.2 % (11.5-14.5); White Blood Count 8.2 K/mm3 (4.5-10.0)
[2022-02-23] MEDS: SODIUM CHLORIDE 0.9% IV 1,000 ML 150 ML IV CONT (04:45)
[2022-02-23 05:01] LABS: Alanine Aminotransferase 73 U/L (6-50); Albumin Level 2.9 g/dL (3.5-5.1); Alkaline Phosphatase 56 U/L (38-126); Anion Gap 1 mmol/L (8-16); Aspartate Amino Transferase 73 U/L (17-59); Blood Urea Nitrogen 7 mg/dL (9-20); Calcium 7.9 mg/dL (8.4-10.2); Carbon Dioxide 31 mmol/L (22-30); Chloride 105 mmol/L (98-107); Creatine Kinase 1447 U/L (55-170); Estimated CRCL calculation 99 ml/min; Estimated Glomerular Filt Rate > 60; Glucose 94 mg/dL (65-110); Magnesium 1.8 mg/dL (1.6-2.3); Phosphorus 3.4 mg/dL (2.5-4.5); Potassium 3.3 mmol/L (3.4-5.0); Sodium 137 mmol/L (137-145)
--- NOTE | 2022-02-23 06:00 | ECG_ITS ---
Measurements Intervals [place] Rate: 95 P: 53 MS: 154 QRS: 43 QRSD: 97 T: 14 QT: 356 QTc: 448 Interpretive Statements SINUS RHYTHM NORMAL ECG Electronically Signed On 02-23-2022 9:53:22 CDT by Jony Latif D.O.
[2022-02-23] MEDS: MAGNESIUM SULF 2 GM/WATER 50ML 2 GM/50 ML BAG IVPB (07:38)
[2022-02-23] MEDS: POTASSIUM CHLORIDE 20 MEQ TABLET 40 MEQ PO (07:39)
--- NOTE | 2022-02-23 08:20 | WPDINTPN ---
Progress Note: A&P Assessment and Plan (1) Anticholinergic drug overdose: Qualifiers: Encounter type: initial encounter Injury intent: intentional self-harm Qualified Code(s): T44.3X2A - Poisoning by other parasympatholytics [anticholinergics and antimuscarinics] and spasmolytics, intentional self-harm, initial encounter Code(s): T44.3X1A - Poisoning by other parasympatholytics [anticholinergics and antimuscarinics] and spasmolytics, accidental (unintentional), initial encounter Status: Acute Assessment and Plan: Patient presented with suicidal behavior after taking 2 handfuls of Benadryl pills. -patient currently tachycardic, confused with dilated pupils, difficulty in urination, he is urinating every 10-15 minutes. -refused Berger catheter -mental status much improved -poison Control has been following, was started on bicarb infusion for slightly increased QT interval, will discontinue bicarb infusion -patient received adequate amount of IV fluids, was tachycardic yesterday but in sinus rhythm rate controlled this morning. Will decrease IV fluids to 100 mL/hour and encourage oral diet -blood pressures have improved, continue p.r.n. hydralazine, patient also has diazepam p.r.n. for his anxiety (2) Suicidal behavior: Code(s): R45.89 - Other symptoms and signs involving emotional state Status: Acute Assessment and Plan: Patient in the ER did state that he was suicidal, also his brother informed the hospitalist that he had suicidal thoughts and behaviors -continue suicidal precautions -bedside sitter -patient is medically stable, will have crisis management and care coordination evaluate the patient for placement to a psychiatric unit (3) Acute hypokalemia: Code(s): E87.6 - Hypokalemia Status: Acute Assessment and Plan: Hypokalemia : Will replace potassium (4) Rhabdomyolysis: Code(s): M62.82 - Rhabdomyolysis Status: Acute Assessment and Plan: Rhabdomyolysis, could be related to tremors secondary to Benadryl overdose -patient will be given additional IV fluid bolus this morning -CK levels trending down nicely will discontinue bicarb infusion -will decrease IV fluids and encourage oral intake Plan Discontinue bicarb infusion Decrease IV fluid rate Continue to encourage oral fluid intake and diet Additional Plan Discussed with patient updated with his condition and plan of care Code status: Full code Critical care time spent: 32 minutes This dictation may have been done utilizing a voice recognition system. Attempts have been made to correct errors. However, there may be uncorrected grammatical, spelling, and recognition errors present. Due to a high probability of clinically significant, life threatening deterioration, the patient required my highest level of preparedness to intervene emergently and I personally spent this critical care time directly and personally managing the patient. This critical care time included obtaining a history; examining the patient; pulse oximetry; ordering and review of studies; arranging urgent treatment with development of a management plan; evaluation of patient's response to treatment; frequent reassessment; and discussions with other providers. It was exclusive of separately billable procedures and treating other patients and teaching time. Please see Assessment and Plan section and the rest of the note for further information on patient assessment and treatment Subjective Date/time seen: 02/23/22 08:20 Interval history: Reason for consult: Diphenhydramine overdose, suicidal behavior, depression 02/23/2022: Patient seen and examined the ICU this morning, is awake, alert, oriented x2, withdrawn affect. Hemodynamically stable, heart rate has improved, blood pressures are better. Patient had excellent urine output, creatinine kinase levels trending down nicely. Patient is afebrile. Denies any shortness of sridhar
[2022-02-23] MEDS: ENOXAPARIN 40 MG/0.4 ML SYRINGE SUB-Q (08:50)
[2022-02-23] MEDS: NICOTINE (*PBKC) 21 MG PATCH 1 PATCH TRANSDERM (08:51)
[2022-02-23] MEDS: TRIAMCINOLONE ACET 0.5% OINT 15 GM TUBE 1 APPLIC TOPICAL ×3 (08:52→16:30)
--- NOTE | 2022-02-23 09:02 | PM.IMPN ---
Progress Note: A&P Assessment and Plan (1) Anticholinergic drug overdose: Qualifiers: Encounter type: initial encounter Injury intent: intentional self-harm Qualified Code(s): T44.3X2A - Poisoning by other parasympatholytics [anticholinergics and antimuscarinics] and spasmolytics, intentional self-harm, initial encounter Code(s): T44.3X1A - Poisoning by other parasympatholytics [anticholinergics and antimuscarinics] and spasmolytics, accidental (unintentional), initial encounter Status: Acute Assessment and Plan: Patient presented with suicidal behavior after taking 2 handfuls of Benadryl pills. Still has tachycardia and elevated CK but improved. (2) Suicidal behavior: Code(s): R45.89 - Other symptoms and signs involving emotional state Status: Acute Assessment and Plan: Patient currently denying SI or HI but presented with these symptoms. -Continue suicide precautions -Will plan to have patient to go to inpatient psychiatry once discharged (3) Acute hypokalemia: Code(s): E87.6 - Hypokalemia Status: Acute Assessment and Plan: Resolved. (4) Rhabdomyolysis: Code(s): M62.82 - Rhabdomyolysis Status: Acute Assessment and Plan: CK 1400s today. Will continue to monitor today. Continue IVF. Will plan to discharge tomorrow. Plan Subjective Date/time seen: 02/23/22 09:02 Patient denies auditory or visual hallucinations. Patient denies suicidal or homicidal ideation. Patient says he feels better today and does not feel as down as he did yesterday. Review of Systems Psychiatric: Psychiatric: Reports depression, Denies homicidal ideation and Denies suicidal ideation Exam Narrative: GENERAL: NAD, cooperative HEENT: Normocephalic, atraumatic, anicteric, large dilated pupils NECK: Supple CV: Tachycardia, regular rhythm. No murmurs. RESP: CTAB, Normal work of breathing. Abdomen: Soft, non-tender, non-distended, +BS EXTREMITIES: Warm and well perfused, no clubbing, cyanosis, or edema. +2 Distal pulses bilaterally. SKIN: warm, dry and intact. NEURO:CN 2-12 grossly intact. Objective Data Vital Signs Vital Signs: Vital Signs - 24 hr 02/22/22 10:00 02/22/22 10:00 02/22/22 12:00 Temperature 98.3 F Pulse Rate 113 H 113 H 100 Respiratory Rate 18 22 H Blood Pressure 176/89 H 169/94 H Pulse Oximetry 96 98 Oxygen Delivery 02/22/22 12:00 02/22/22 12:00 02/22/22 14:00 Temperature Pulse Rate 104 H 100 101 H Respiratory Rate 22 H Blood Pressure Pulse Oximetry 98 Oxygen Delivery Room Air 02/22/22 14:00 02/22/22 16:00 02/22/22 16:00 Temperature Pulse Rate 101 H 98 98 Respiratory Rate 28 H 28 H Blood Pressure 169/98 H Pulse Oximetry Oxygen Delivery Room Air 02/22/22 16:00 02/22/22 18:00 02/22/22 18:00 Temperature 98.3 F Pulse Rate 98 97 97 Respiratory Rate 28 H 25 H Blood Pressure 159/94 H 164/101 H Pulse Oximetry 98 Oxygen Delivery 02/22/22 19:47 02/22/22 19:52 02/22/22 20:00 Temperature 98.4 F Pulse Rate 91 Respiratory Rate 27 H Blood Pressure 164/101 H Pulse Oximetry 98 Oxygen Delivery Room Air 02/22/22 20:00 02/22/22 21:55 02/22/22 22:00 Temperature Pulse Rate 95 87 84 Respiratory Rate 24 H Blood Pressure 148/95 H Pulse Oximetry 98 Oxygen Delivery 02/23/22 00:00 02/23/22 00:00 02/23/22 00:00 Temperature 98.2 F Pulse Rate 90 85 Respiratory Rate 26 H Blood Pressure 150/95 H Pulse Oximetry 100 Oxygen Delivery Room Air 02/23/22 02:00 02/23/22 02:00 02/23/22 04:00 Temperature Pulse Rate 73 73 Respiratory Rate 19 Blood Pressure 143/94 H Pulse Oximetry 97 Oxygen Delivery Room Air 02/23/22 04:00 02/23/22 04:00 02/23/22 06:00 Temperature 97.8 F Pulse Rate 68 70 82 Respiratory Rate 19 24 H Blood Pressure 137/87 149/97 H Pulse Oximetry 97 98 Oxygen Delivery
--- NOTE | 2022-02-23 09:20 | PC.NURSE ---
Updated patient's mother on patient condition and plan of care. Patient was asked if RN can update mother on plan of care prior to phone call.
[2022-02-23] MEDS: diazePAM INJ (*CRX) 10 MG/2 ML SYRINGE 2 MG IV PUSH ×2 (12:34→18:42)
[2022-02-23] MEDS: SODIUM CHLORIDE 0.9% IV 1,000 ML 100 ML IV CONT (13:27)
[2022-02-24] VITALS (10 sets, daily range): BP systolic 131–157; BP diastolic 86–106; PULSE 83–131; RESP 15–23; TEMP 36.8–36.9; O2SAT 98
[2022-02-24] MEDS: diazePAM INJ (*CRX) 10 MG/2 ML SYRINGE 2 MG IV PUSH ×2 (00:50→07:03)
[2022-02-24] MEDS: SODIUM CHLORIDE 0.9% IV 1,000 ML 100 ML IV CONT ×2 (00:50→11:20)
[2022-02-24 04:20] LABS: Basophils Percent Auto 0.3 % (0.2-1.2); Eosinophils Absolute Auto 0.2 K/mm3 (0-0.3); Eosinophils Percent Auto 1.5 % (0-4.4); Hematocrit 51.9 % (42.0-52.0); Hemoglobin 17.8 g/dL (14.0-18.0); Immature Granulocyte Absolute 0.06 K/mm3 (0.00-0.031); Immature Granulocyte Percent A 0.5 % (0-0.5); Lymphocytes Percent Auto 26.8 % (18.3-44.2); Mean Corpuscular HGB Conc 34.3 g/dl (32-36); Mean Corpuscular Hemoglobin 29.6 pg (26-34); Mean Corpuscular Volume 86.4 fl (80-100); Mean Platelet Volume 9.4 fl (7.4-10.4); Monocytes Absolute Auto 0.8 K/mm3 (0.1-0.6); Monocytes Percent Auto 6.3 % (2.6-8.5); Neutrophils Absolute Auto 7.7 K/mm3 (1.3-6.7); Neutrophils Percent Auto 64.6 % (45.5-73.1); Platelet Count Result 223 k/mm3 (150-375); Red Blood Count 6.01 M/mm3 (4.6-6.20); White Blood Count 11.9 K/mm3 (4.5-10.0)
[2022-02-24 04:29] LABS: Alanine Aminotransferase 79 U/L (6-50); Albumin Level 3.8 g/dL (3.5-5.1); Alkaline Phosphatase 78 U/L (38-126); Anion Gap 4 mmol/L (8-16); Aspartate Amino Transferase 55 U/L (17-59); Bilirubin,Total 0.9 mg/dL (0.2-1.3); Blood Urea Nitrogen 9 mg/dL (9-20); Carbon Dioxide 27 mmol/L (22-30); Chloride 107 mmol/L (98-107); Creatine Kinase 830 U/L (55-170); Estimated CRCL calculation 101 ml/min; Estimated Glomerular Filt Rate > 60; Glucose 91 mg/dL (65-110); Potassium 3.9 mmol/L (3.4-5.0); Sodium 138 mmol/L (137-145)
--- NOTE | 2022-02-24 08:42 | PM.IMPN ---
Progress Note: A&P Assessment and Plan (1) Anticholinergic drug overdose: Qualifiers: Encounter type: initial encounter Injury intent: intentional self-harm Qualified Code(s): T44.3X2A - Poisoning by other parasympatholytics [anticholinergics and antimuscarinics] and spasmolytics, intentional self-harm, initial encounter Code(s): T44.3X1A - Poisoning by other parasympatholytics [anticholinergics and antimuscarinics] and spasmolytics, accidental (unintentional), initial encounter Status: Acute Assessment and Plan: Patient presented with suicidal behavior after taking 2 handfuls of Benadryl pills. -patient was initially tachycardic on admission, laws in sinus bradycardia. ? -mental status much improved -poison Control has signed off, -continue maintenance IV fluids and encourage oral fluids and diet -blood pressures have improved, continue p.r.n. hydralazine, patient also has diazepam p.r.n. for his anxiety (2) Suicidal behavior: Code(s): R45.89 - Other symptoms and signs involving emotional state Status: Acute Assessment and Plan: Patient in the ER did state that he was suicidal, also his brother informed the hospitalist that he had suicidal thoughts and behaviors -continue suicidal precautions -bedside sitter -patient is medically stable, will have crisis management and care coordination evaluate the patient for placement to a psychiatric unit (3) Acute hypokalemia: Code(s): E87.6 - Hypokalemia Status: Acute Assessment and Plan: Resolved (4) Rhabdomyolysis: Code(s): M62.82 - Rhabdomyolysis Status: Acute Assessment and Plan: Rhabdomyolysis, could be related to tremors secondary to Benadryl overdose -patient will be given additional IV fluid bolus this morning -CK levels trending down nicely. -continue IV fluids and encourage oral intake Plan Crisis management to evaluate patient Additional Plan Discussed with patient updated with his condition and plan of care Code status:? Full code This dictation may have been done utilizing a voice recognition system.? Attempts have been made to correct errors. However, there may be uncorrected grammatical, spelling, and recognition errors present. Due to a high probability of clinically significant, life threatening deterioration, the patient required my highest level of preparedness to intervene emergently and I personally spent this critical care time directly and personally managing the patient. This critical care time included obtaining a history; examining the patient; pulse oximetry; ordering and review of studies; arranging urgent treatment with development of a management plan; evaluation of patient's response to treatment; frequent reassessment; and discussions with other providers. It was exclusive of separately billable procedures and treating other patients and teaching time. Please see Assessment and Plan section and the rest of the note for further information on patient assessment and treatment Subjective Date/time seen: 02/24/22 08:42 Interval history: Reason for consult:? Diphenhydramine overdose, suicidal behavior, depression 02/23/2022:? Seeing patient for the hospitalist group. He is awake, alert, oriented with a withdrawn affect.? Hemodynamically stable, heart rate has improved, blood pressures are better.? Patient had excellent urine output, creatinine kinase levels trending down nicely.? Patient is afebrile.? Denies any shortness of breath, chest pain, nausea, vomiting, abdominal pain Exam Narrative: General:? Well-built young gentleman in no acute distress HEENT:? Pupils the dilated, sclera is clear Neck:? Supple Respiratory:? Clear to auscultation bilaterally, no wheezing Cardiac:? Tachycardia, S1-S2 normal Abdomen:? Soft, nontender, nondistended, hypoactive bowel sounds Extremities:? No edema, palpable pedal pulses Neuro:? Patient is awake, alert, oriented x2, able to follow s
[2022-02-24] MEDS: NICOTINE (*PBKC) 21 MG PATCH 1 PATCH TRANSDERM (09:27)
[2022-02-24] MEDS: ENOXAPARIN 40 MG/0.4 ML SYRINGE SUB-Q (09:28)
[2022-02-24] MEDS: TRIAMCINOLONE ACET 0.5% OINT 15 GM TUBE 1 APPLIC TOPICAL ×2 (09:28→14:33)
--- NOTE | 2022-02-24 09:36 | PM.TDS ---
Transfer Discharge Sum: Prov Provider Date of admission: 02/22/22 02:23 Primary care physician: Quiana Armstrong, Admitting clinician: Loyda King DO Consults: 02/22/22 02:24 Consult to Physician Routine Comment: Consulting Provider: Shawanda Green Reason for consultation: ICU patient, benadryl overdose Has provider been notified: Yes DS: Admitting Diagnosis Discharge Date 02/24/22 Admitting Diagnosis Suicide Attempt DS: Discharge Diagnosis Discharge Diagnosis (1) Anticholinergic drug overdose: Qualifiers: Encounter type: initial encounter Injury intent: intentional self-harm Qualified Code(s): T44.3X2A - Poisoning by other parasympatholytics [anticholinergics and antimuscarinics] and spasmolytics, intentional self-harm, initial encounter Code(s): T44.3X1A - Poisoning by other parasympatholytics [anticholinergics and antimuscarinics] and spasmolytics, accidental (unintentional), initial encounter Status: Acute Assessment and Plan: Patient presented with suicidal behavior after taking 2 handfuls of Benadryl pills. -patient was initially tachycardic on admission, laws in sinus bradycardia. ? -mental status much improved -poison Control has signed off, -continue maintenance IV fluids and encourage oral fluids and diet -blood pressures have improved, continue p.r.n. hydralazine, patient also has diazepam p.r.n. for his anxiety (2) Suicidal behavior: Code(s): R45.89 - Other symptoms and signs involving emotional state Status: Acute Assessment and Plan: Patient in the ER did state that he was suicidal, also his brother informed the hospitalist that he had suicidal thoughts and behaviors -continue suicidal precautions -bedside sitter -patient is medically stable, will have crisis management and care coordination evaluate the patient for placement to a psychiatric unit (3) Acute hypokalemia: Code(s): E87.6 - Hypokalemia Status: Acute Assessment and Plan: Resolved (4) Rhabdomyolysis: Code(s): M62.82 - Rhabdomyolysis Status: Acute Assessment and Plan: Rhabdomyolysis, could be related to tremors secondary to Benadryl overdose -patient will be given additional IV fluid bolus this morning -CK levels trending down nicely. -continue IV fluids and encourage oral intake Plan Crisis management to evaluate patient Transfer Discharge Sum: Med Medications Active and Home Medications: Home Medications aripiprazole 5 mg tablet mg 02/22/22 [History] haloperidol 5 mg tablet mg 02/22/22 [History] hydroxyzine HCl 25 mg tablet mg 02/22/22 [History] triamcinolone acetonide 0.1 % topical cream 1 applic topical TID #15 grams 02/24/22 [Rx] Transfer Discharge Sum: Hosp Hospital Course Hospital course: 26-year-old male with a past medical history of bipolar disorder, anxiety and hallucinations who presented to the ER via EMS after suicidal attempt. Patient took a benadryl to overdose and was admitted to the intensive care unit and treated for symptoms related to this benadryl overdose. Patient had hallucinations. Once medically cleared, patient was transferred for admission to an inpatient psychiatric hospital. Time Spent with Patient Time attestation: Total time spent providing and/or coordinating transfer services: Exam Narrative: I did not see or examine this patient on the day of discharge/transfer as there was a high census and the business job titles saw and examined the patient.
[2022-02-24 10:58] LABS: EDCOVIDSCREEN Negative (Negative)
[2022-02-24] MEDS: LORazepam (*CRX) 1 MG TABLET 2 MG PO (14:29)
[2022-02-24] MEDS: LORazepam INJ (*CRX) 2 MG/ML VIAL IV PUSH (15:05)
--- NOTE | 2022-02-24 15:20 | PC.NURSE ---
Attempted to call report to [facility] and has asked to be called again at 1550.
[2022-02-24] MEDS: hydrALAZINE HCL 20 MG/ML VIAL 10 MG IV PUSH (15:24)
--- NOTE | 2022-02-24 15:54 | PC.NURSE ---
Report given to WHITNEY Reid at [facility]. All questions answered. Pt transferred out via ambulance. Both IV's removed prior to discharge.
== END 2022-02-24 15:56 | disposition other institution (70) ==
LOC: ANHED 23:24 → ANHICU 02-22 04:32
PROVIDERS: Internal Medicine; Admitting Provider Internal Medicine; Emergency Provider Emergency Medicine; PCP Family Medicine; Visit Provider Family Medicine
DX: T45.0X2A Poisoning by antiallergic and antiemetic drugs, intentional self-harm, initial encounter (principal); Y92.89 Other specified places as the place of occurrence of the external cause; R45.851 Suicidal ideations; E87.6 Hypokalemia; M62.82 Rhabdomyolysis; R41.82 Altered mental status, unspecified; R00.0 Tachycardia, unspecified; F19.94 Other psychoactive substance use, unspecified with psychoactive substance-induced mood disorder; F41.9 Anxiety disorder, unspecified; F31.9 Bipolar disorder, unspecified; R44.0 Auditory hallucinations; I10 Essential (primary) hypertension; I15.0 Renovascular hypertension; Z20.822 Contact with and (suspected) exposure to COVID-19; Z72.89 Other problems related to lifestyle; F17.210 Nicotine dependence, cigarettes, uncomplicated; Z79.899 Other long term (current) drug therapy
CPT/HCPCS: 36415; 51701; 71045; 80053; 80307; 81001; 82550; 83735; 84100; 85025; 85027; 87426; 92960; 93005; 96361; 96365; 96366; 96367; 96372; 96374; 96375; 96376; 99285; A9270; C9803; G0378; G0379; J0360; J1650; J2060; J3360; J3475; J3480; J7030; J7040; J7070; J7120; U0003; U0005

== ENCOUNTER 2022-08-05 22:07 | Emergency (ER) | payer BC, SELFPAY ==
[2022-08-05] MEDS: NICOTINE (*PBKC) 21 MG PATCH 1 PATCH TRANSDERM (22:37)
--- NOTE | 2022-08-05 22:41 | PC.NURSE ---
awaiting medical clearance
[2022-08-05 22:42] VITALS: BP 167/98; RESP 18; TEMP 36.8; O2SAT 100
[2022-08-05 22:44] LABS: Basophils Percent Auto 0.4 % (0.2-1.2); Eosinophils Percent Auto 0.4 % (0-4.4); Immature Granulocyte Absolute 0.06 K/mm3 (0.00-0.031); Immature Granulocyte Percent A 0.6 % (0-0.5); Lymphocytes Absolute Auto 2.48 K/mm3 (0.9-3.2); Lymphocytes Percent Auto 22.9 % (18.3-44.2); Mean Corpuscular HGB Conc 33.9 g/dl (32-36); Mean Corpuscular Hemoglobin 30.1 pg (26-34); Mean Corpuscular Volume 88.7 fl (80-100); Mean Platelet Volume 9.3 fl (7.4-10.4); Monocytes Absolute Auto 0.7 K/mm3 (0.1-0.6); Monocytes Percent Auto 6.8 % (2.6-8.5); Neutrophils Absolute Auto 7.5 K/mm3 (1.3-6.7); Neutrophils Percent Auto 68.9 % (45.5-73.1); Platelet Count Result 326 k/mm3 (150-375); Red Blood Count 6.31 M/mm3 (4.6-6.20); Red Cell Distribution Width 12.8 % (11.5-14.5); White Blood Count 10.8 K/mm3 (4.5-10.0)
[2022-08-05 22:48] VITALS: BP 120/68; PULSE 85; RESP 18; TEMP 36.8; O2SAT 97
[2022-08-05 22:50] LABS: Add Urine Microscopic? NO; Appearance Urine Clear (Clear); Bilirubin Urine Negative (Negative); Blood Urine Negative (Negative); Color Urine Yellow (Yellow); Glucose Urine UA Negative (Negative); Ketones Urine Negative (Negative); Leukocyte Esterase Ur Negative LEU/UL (Negative); Nitrate Urine Negative (Negative); Protein Urine Negative (Negative); Specific Grav Ur <= 1.005 (1.001-1.035); Urobilinogen Urine 0.2 mg/dL (<2.0)
[2022-08-05 22:52] LABS: Alanine Aminotransferase 59 U/L (6-50); Albumin Level 5.5 g/dL (3.5-5.1); Alkaline Phosphatase 98 U/L (38-126); Anion Gap 14 mmol/L (8-16); Aspartate Amino Transferase 39 U/L (17-59); Bilirubin,Total 0.6 mg/dL (0.2-1.3); Blood Urea Nitrogen 11 mg/dL (9-20); Carbon Dioxide 23 mmol/L (22-30); Chloride 105 mmol/L (98-107); Estimated CRCL calculation 98 ml/min; Estimated Glomerular Filt Rate > 60; Ethanol 178 mg/dL (<10); Glucose 86 mg/dL (65-110); Potassium 3.2 mmol/L (3.4-5.0); Sodium 142 mmol/L (137-145)
[2022-08-05 22:54] LABS: Bacteria Urine Trace /hpf; Mucus Urine Rare /lpf; WBC Urine 0-3 /hpf
[2022-08-05 23:02] LABS: Amphetamine Screen Urine Negative (Negative); Barbiturate Screen Urine Negative (Negative); Benzodiazepines Screen Urine Negative (Negative); Cannabinoid Screen Urine Positive (Negative); Cocaine Screen Urine Negative (Negative); Methadone Screen Urine Negative (Negative); Opiate Screen Urine Negative (Negative); Phencyclidine Screen Urine Negative (Negative)
--- NOTE | 2022-08-05 23:17 | PC.NURSE ---
Patient appears paranoid and pacing in room.. Speaking to himself in his room. Security notified. Patient agitated speaking about the .
[2022-08-06 01:11] LABS: SARS-CoV-2 RNA PCR Negative
[2022-08-06 02:26] LABS: Ethanol 80 mg/dL (<10)
--- NOTE | 2022-08-06 03:13 | PC.NURSE ---
Patient agitated. Does not want to stay for Crisis evaluation. Explained to patient that he needs to stay for evaluation. Patient remains agitated in room. Security remains sitting with patient at bedside.
--- NOTE | 2022-08-06 03:19 | ED.GENADULT ---
HPI - General Adult General Chief complaint: Psychiatric Symptoms Stated complaint: SI Source: RN notes reviewed History of Present Illness HPI narrative: Patient presents emergency department via EMS for suicidal ideation. History is per the patient as well as EMS. Per the patient gone to an argument with his father donaldo states to his father that he is going back to the [place] but did not state he was going to harm self states he became upset and then began to walk to his friend's house the police found the patient walking along the road. Patient did make initial suicidal statements to the police he denies any suicidal thoughts at this time states he has had them in the past but denies any wish to harm himself or anyone else at this time. Does admit to drinking this evening he denies any other recent illness Related Data Home Medications Medication Instructions Recorded Confirmed aripiprazole 5 mg tablet mg 02/22/22 haloperidol 5 mg tablet mg 02/22/22 hydroxyzine HCl 25 mg tablet mg 02/22/22 Allergies Allergy/AdvReac Type Severity Reaction Status Date / Time No Known Allergies Allergy Verified 02/21/22 23:47 Review of Systems Review of Systems: Gen.: Denies fevers or chills ENT: Denies congestion Respiratory: Denies shortness of breath or cough CV: Denies chest pain or palpitations GI: Denies abdominal pain nausea, emesis or diarrhea Musculoskeletal: Denies back pain or muscle pain Neuro: Denies numbness, tingling, weakness or focal weakness Skin: Denies rash Psych: See HPI Except as documented, all other systems reviewed and negative PMFSH Past Medical History Medical History Anxiety Auditory hallucinations Bipolar disorder Surgical History Surgical History No history of previous surgery Family History Family History Father Healthy adult Mother Healthy adult Social History Social History Social History: He reports that he smoked pack per day since he was 12 years old. Smoking packs per day: 1 Smoking cigarettes per day: 20.0 Years smoked: 15 Smoking pack-years: 15.00 Smoking status: Current every day smoker Tobacco type: cigarettes Alcohol intake: current Drinks per week: 10 Substance use: current Substance use type: marijuana Additional living arrangements comments: He lives with his parents. Additional occupation/education comments: He works at [employer]. Gender identity (if verbalized by the patient): Male Spiritual care concerns: No Exam Narrative: APPEARANCE: No acute distress, nontoxic, resting in bed EYES: EOMI HEENT: Normocephalic, atraumatic, OMM RESPIRATORY: No respiratory distress Clear to auscultation bilaterally with no rhonchi wheezing or rales. CARDIOVASCULAR: Regular rate and rhythm without murmurs rubs or gallops. ABDOMINAL: Soft, nontender, nondistended, no rebound or guarding MUSCULOSKELETAl: Moves all extremities. No clubbing, cyanosis or edema. NEURO: Awake and alert. Following commands, speech normal, no focal deficits SKIN:: Warm, dry. No rashes lesions or abrasions PSYCHIATRIC: Normal affect/mood, denies suicidal ideation, denies homicidal ideation Course Course Emergency Course: Patient evaluated by crisis engraver signature patient is felt safe to be discharged at this time a safety plan Patient reevaluated continues denying suicidal homicidal ideation Discussed with patient results of workup and diagnosis. Discussed need for follow-up with primary care, proper use of medication, and reasons to return to the emergency department. Patient understands and agrees to current treatment plan Vital Signs Vital signs: Vital Signs Temperature 98.2 F 08/05/22 22:42 Respiratory Rate 18 08/05/22 22:4
[2022-08-06 04:18] VITALS: BP 115/76; PULSE 100; RESP 20; TEMP 36.8; O2SAT 99
== END 2022-08-06 04:20 | disposition home or self-care (01) ==
PROVIDERS: Emergency Provider Emergency Medicine; PCP Family Medicine
DX: F31.9 Bipolar disorder, unspecified (principal); Z20.822 Contact with and (suspected) exposure to COVID-19; F17.210 Nicotine dependence, cigarettes, uncomplicated; F41.9 Anxiety disorder, unspecified
CPT/HCPCS: 36415; 80053; 80307; 81003; 84443; 85025; 99284; A9270; U0003; U0005

== ENCOUNTER 2023-09-06 15:50 | Emergency (ER) | payer BC, SELFPAY ==
[2023-09-06 16:02] VITALS: PULSE 73; RESP 17; TEMP 36.7; O2SAT 100
[2023-09-06 16:17] LABS: Basophils Percent Auto 0.4 % (0.2-1.2); Eosinophils Absolute Auto 0.1 K/mm3 (0-0.3); Hematocrit 55.2 % (42.0-52.0); Hemoglobin 19.1 g/dL (14.0-18.0); Immature Granulocyte Absolute 0.04 K/mm3 (0.00-0.031); Immature Granulocyte Percent A 0.4 % (0-0.5); Lymphocytes Absolute Auto 2.74 K/mm3 (0.9-3.2); Lymphocytes Percent Auto 24.9 % (18.3-44.2); Mean Corpuscular HGB Conc 34.6 g/dl (32-36); Mean Corpuscular Hemoglobin 29.2 pg (26-34); Mean Corpuscular Volume 84.3 fl (80-100); Mean Platelet Volume 9.6 fl (7.4-10.4); Monocytes Absolute Auto 0.7 K/mm3 (0.1-0.6); Monocytes Percent Auto 6.1 % (2.6-8.5); Neutrophils Absolute Auto 7.4 K/mm3 (1.3-6.7); Neutrophils Percent Auto 67.2 % (45.5-73.1); Platelet Count Result 260 k/mm3 (150-375); Red Blood Count 6.55 M/mm3 (4.6-6.20); Red Cell Distribution Width 12.5 % (11.5-14.5)
[2023-09-06 16:25] LABS: Acetaminophen < 10 ug/mL (10-30); Ethanol < 10 mg/dL (<10); Salicylate < 1.0 mg/dL (2-20)
--- NOTE | 2023-09-06 16:33 | ED.PSYCH ---
HPI - Psych General Chief Complaint: Psychiatric Symptoms <Yvonne Beltrán PA-C - Last Filed: 09/06/23 18:31> Stated Complaint: SI with plan <JENNA Chowdhury Last Filed: 09/06/23 18:31> Time Seen by Provider: 09/06/23 15:57 <Yvonne Beltrán PA-C - Last Filed: 09/06/23 18:31> History of Present Illness HPI Narrative: 28-year-old male with a diagnosis of bipolar 1 disorder reports for evaluation for suicidal ideation with a plan for the past 2-3 days. Patient states he feels like he wants to kill himself and plans to take the rest of his Haldol to do so. He is aware that this is not good he does not want to , therefore he came to the ER for help. He is desiring inpatient admission. Patient states he has been medicated for anxiety and bipolar 1 with Haldol, Vistaril, and another anti-anxiolytic which he ran out of week ago. He reports prior history of inpatient psychiatric admissions for SI with a plan. He has a psychiatrist at the [place]. reports marijuana use, otherwise denies drugs or alcohol. He reports remote history of auditory hallucinations, but has not had any recently. Denies visual hallucinations. Denies HI. <Yvonne Beltrán PA-C - Last Filed: 09/06/23 18:31> Related Data Home Medications: Home Medications Medication Instructions Recorded Confirmed aripiprazole 5 mg tablet mg 02/22/22 haloperidol 5 mg tablet mg 02/22/22 hydroxyzine HCl 25 mg tablet mg 02/22/22 <JENNA Chowdhury Last Filed: 09/06/23 18:31> Allergies/Adverse Reactions: Allergies Allergy/AdvReac Type Severity Reaction Status Date / Time No Known Allergies Allergy Verified 02/21/22 23:47 <JENNA Chowdhury Last Filed: 09/06/23 18:31> Review of Systems Review of Systems: CONSTITUTIONAL: Denies fever, chills, or sweats. EYES: Denies visual changes, redness, or discharge. ENT: Denies rhinorrhea, congestion, sore throat, or otalgia. CARDIOVASCULAR: Denies chest pain, palpitations, or edema. RESPIRATORY: Denies cough or dyspnea. GASTROINTESTINAL: Denies abdominal pain, nausea, vomiting, or diarrhea. GENITOURINARY: Denies dysuria or hematuria. SKIN: Denies rash or itching. MUSCULOSKELETAL: Denies back pain, joint pain, or myalgia. NEUROLOGIC: Denies headache, numbness, or weakness. PSYCHIATRIC: See HPI <Yvonne Beltrán PA-C - Last Filed: 09/06/23 18:31> PMFSH Past Medical History Medical History: Medical History Anxiety Auditory hallucinations Bipolar disorder <Yvonne Beltrán PA-C - Last Filed: 09/06/23 18:31> Surgical History Surgical History: Surgical History No history of previous surgery <Yvonne Beltrán PA-C - Last Filed: 09/06/23 18:31> Family History Family History: Family History Father Healthy adult Mother Healthy adult <Yvonne Beltrán PA-C - Last Filed: 09/06/23 18:31> Social History Social History: Social History Social History: He reports that he smoked pack per day since he was 12 years old. Smoking packs per day: 1 Smoking cigarettes per day: 20.0 Years smoked: 15 Smoking pack-years: 15.00 Smoking status: Current every day smoker Tobacco type: cigarettes Alcohol intake: current Drinks per week: 10 Substance use: current Substance use type: marijuana Additional living arrangements comments: He lives with his parents. Additional occupation/education comments: He works at [employer]. Gender identity (if verbalized by the patient): Male Spiritual care concerns: No <Yvonne Beltrán PA-C - Last Filed: 09/06/23 18:31> Exam Narrative: GENERAL: Well-appearing, well-nourished, and in no acute distress. HEAD: Normocephalic, atraumatic
[2023-09-06 16:35] LABS: Appearance Urine Clear (Clear); Bilirubin Urine Negative (Negative); Blood Urine Negative (Negative); Color Urine Yellow (Yellow); Glucose Urine UA Negative (Negative); Ketones Urine Trace mg/dL (Negative); Leukocyte Esterase Ur Negative LEU/UL (Negative); Nitrate Urine Negative (Negative); Protein Urine Negative (Negative); Specific Grav Ur 1.017 (1.001-1.035)
[2023-09-06 16:39] LABS: Add Urine Microscopic? NO
[2023-09-06 16:47] LABS: Alanine Aminotransferase 52 U/L (6-50); Albumin Level 4.8 g/dL (3.5-5.1); Alkaline Phosphatase 79 U/L (38-126); Anion Gap 13 mmol/L (8-16); Aspartate Amino Transferase 34 U/L (17-59); Bilirubin,Total 1.3 mg/dL (0.2-1.3); Blood Urea Nitrogen 18 mg/dL (9-20); Calcium 9.8 mg/dL (8.4-10.2); Carbon Dioxide 22 mmol/L (22-30); Chloride 105 mmol/L (98-107); Estimated Glomerular Filt Rate > 60; Glucose 103 mg/dL (65-110); Potassium 4.1 mmol/L (3.4-5.0); Sodium 140 mmol/L (137-145)
[2023-09-06 16:49] LABS: Amphetamine Screen Urine Negative (Negative); Barbiturate Screen Urine Negative (Negative); Benzodiazepines Screen Urine Negative (Negative); Cannabinoid Screen Urine Positive (Negative); Cocaine Screen Urine Negative (Negative); Methadone Screen Urine Negative (Negative); Opiate Screen Urine Negative (Negative); Phencyclidine Screen Urine Negative (Negative)
[2023-09-06 16:51] LABS: SARS-CoV-2 RNA PCR Negative (Negative)
[2023-09-06] MEDS: NICOTINE (*PBKC) 14 MG PATCH 1 PATCH TRANSDERM (17:37)
[2023-09-06] MEDS: LORazepam (*CRX) 0.5 MG TABLET PO (17:38)
[2023-09-06] MEDS: traZODone HCL 50 MG TABLET 100 MG PO (20:45)
[2023-09-06 22:58] VITALS: BP 132/76; PULSE 64; RESP 15; TEMP 36.8; O2SAT 100
== END 2023-09-06 23:24 ==
LOC: ANHED 17:33
PROVIDERS: Emergency Provider Physician Assistant; PCP Family Medicine
DX: R45.851 Suicidal ideations (principal); Z11.52 Encounter for screening for COVID-19; F31.9 Bipolar disorder, unspecified; F41.9 Anxiety disorder, unspecified; F17.210 Nicotine dependence, cigarettes, uncomplicated
CPT/HCPCS: 36415; 80053; 80307; 81003; 84443; 85025; 87635; 99285; A9270